=== PATIENT | male | born 1935 | race Caucasian/White ===

== ENCOUNTER 2020-07-14 07:50 | Emergency (ER) | payer MEDICARE, OTHER ==
--- NOTE | 2020-07-14 08:38 | EDM.PDOC ---
ED HPI GENERAL MEDICAL PROBLEM - General Chief Complaint: Lower Extremity Injury/Pain Stated Complaint: FELL ON RIGHT HIP, EARS ARE PLUGGED Time Seen by Provider: 07/14/20 08:27 Source of Information: Reports: Patient, Family, RN Notes Reviewed History Limitations: Reports: No Limitations - History of Present Illness INITIAL COMMENTS - FREE TEXT/NARRATIVE: 85-year-old gentleman presents emergency department day complaint of right hip pain, he fell yesterday landing on his right hip he was able to tolerate it okay but now the pain has gotten significantly worse to the point he cannot bear weight. He is also injured his right elbow he states he is not having any pain from that area and he has a red swollen right ear that has been going on for couple of days. - Related Data Allergies Allergy/AdvReac Type Severity Reaction Status Date / Time No Known Allergies Allergy Verified 07/14/20 08:13 Home Meds: Home Meds Aspirin 1 tab PO DAILY 07/14/20 [History] Brimonidine Tartrate/Timolol [Combigan 0.2%-0.5% Eye Drops] 1 drop EYELF BID 07/14/20 [History] Latanoprost/Pf [Latanoprost 0.005% Eye Drop] 1 drop EYEBOTH DAILY 07/14/20 [History] Simvastatin 1 tab PO DAILY 07/14/20 [History] atenoloL [Atenolol] 1 tab PO DAILY 07/14/20 [History] lisinopriL [Lisinopril] 1 tab PO DAILY 07/14/20 [History] Past Medical History Cardiovascular History: Reports: High Cholesterol, Hypertension - Past Surgical History Cardiovascular Surgical History: Reports: Coronary Artery Bypass GI Surgical History: Reports: Appendectomy Social & Family History - Tobacco Use Tobacco Use Status *Q: Never Tobacco User Review of Systems - Review of Systems Review Of Systems: See Below Ears: Reports: Other (Edema). Denies: Clear Discharge, Purulent Discharge, Serosanguinous Discharge Musculoskeletal: Reports: Joint Pain (Hip pain) Skin: Reports: Rash, Change in Color ED EXAM, GENERAL - Physical Exam Exam: See Below Free Text/Narrative:: Examination of the right hip he is point tender over the greater trochanter does not tolerate flexion or extension well cannot do internal and external rotation Exam Limited By: No Limitations General Appearance: Alert, WD/WN, No Apparent Distress Ear Exam: Right Ear: Swelling, Bilateral Ear: Canal Normal, TM normal Course - Vital Signs Last Recorded V/S: Last Vital Signs Temp 96.6 F L 07/14/20 08:25 Pulse 64 07/14/20 08:25 Resp 14 07/14/20 08:25 BP 124/61 07/14/20 08:25 Pulse Ox 97 07/14/20 08:25 - Orders/Labs/Meds Orders: Active Orders 24 hr Category Date Time Status Consult to Physical Therapy [PT Evaluation and Cons 07/14/20 11:00 Active Treatment] [CONS] Routine Meds: Medications Discontinued Medications Generic Name Dose Route Start Last Admin Trade Name Rosalinda PRN Reason Stop Dose Admin Ketorolac Tromethamine 30 mg 07/14/20 08:39 07/14/20 08:44 Ketorolac 30 Mg/Ml Sdv IM 07/14/20 08:40 30 mg ONETIME ONE Administration - Re-Assessments/Exams Free Text/Narrative Re-Assessment/Exam: 07/14/20 11:39 I did have him trial standing he was able to put his foot down consistent with partial weightbearing however any transfer weight cause significant pain he could not take a step. 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 Therefore will we had the opportunity have physical therapy come and evaluate him here get him set up with probably a walker and I will provide pain control he will follow-up then with his primary care on Friday Departure - Departure Time of Disposition: 12:33 Disposition: Home, Self-Care 01 Condition: Fair Clinical Impression: Acetabulum fracture, right Qualifiers: Encounter type: initial encounter Sublocation of acetabulum: unspecified portion of acetabulum Fracture type: closed Fracture alignment: nondisplaced Qualified Code(s): S32.401A - Unspecified fracture of right acetabulum, initial encounter for closed fracture - Discharge Information Instructions: Simple Pelvic Fracture, Adult Referrals: PCP,None [Primary Care Provider] - Forms: ED Department Discharge Additional Instructions: Use ibuprofen for baseline pain control use the hydrocodone for breakthrough pain, take full course of antibiotics, please follow-up with your primary care on Friday for further evaluation and treatment continue to use a walker and be nonweightbearing as much as possible Sepsis Event Note (ED) - Evaluation Sepsis Screening Result: No Definite Risk - Focused Exam Vital Signs: Vital Signs Temp Pulse Resp BP Pulse Ox 07/14/20 08:25 96.6 F L 64 14 124/61 97 - My Orders Last 24 Hours: My Active Orders 07/14/20 11:00 Consult to Physical Therapy [PT Evaluation and Treatment] [CONS] Routine - Assessment/Plan Last 24 Hours: My Active Orders 07/14/20 11:00 Consult to Physical Therapy [PT Evaluation and Treatment] [CONS] Routine Plan: Assessment Acuity = acute Site and laterality = right acetabulum fracture Etiology = secondary to fall Manifestations = none Location of injury = Home Lab values = x-ray was negative CT scan describes a stable nondisplaced right acetabulum fracture Plan I did talk to them about hospital admission which they declined they would like to try this at home therefore had physical therapy come and set him up with a walker to do nonweightbearing as much as possible he is going to follow-up with his primary care upon return home for further evaluation and treatment pr escription written for hydrocodone 5/325 1 tab p.o. 3 times daily as needed total #10 and Keflex 500 mg p.o. 4 times daily x7 days This note was dictated using [employer] voice recognition software please call with any questions on syntax or grammar.
[2020-07-14] MEDS ORDERED: Ketorolac 30 MG/ML SDV IM ONE (08:39)
--- NOTE | 2020-07-14 09:33 | CRLCR ---
INDICATION: Fall. Pain. FINDINGS: A single frontal view of the pelvis along with 2 views of the right hip show no evidence of acute fracture or dislocation. Joint space narrowing of the left hip. Normal appearance of the right hip joint. No other bony or soft tissue abnormalities identified. Dictated by Simón Glass MD @ 07/14/2020 9:30:52 AM Dictated by: Simón Glass MD @ 07/14/2020 09:31:05 (Electronically Signed)
--- NOTE | 2020-07-14 10:33 | CRLCT ---
HISTORY: Right hip pain. TECHNIQUE: Noncontrast CT of the pelvis and right hip. COMPARISON: Radiographs 07/14/2020. FINDINGS: There is a subtle nondisplaced fracture of the right anterior acetabulum which is noted on axial image #81 of series 7 and coronal image #51 and 52 of series 5. Subtle anterior cortical disruption is noted on those images. There is no disruption of the acetabular articular surface. No right proximal femoral fracture. There are mild degenerative changes of the right hip. The right superior and inferior pubic rami are intact. - Degenerative changes of the sacroiliac joints within the lumbar spine. Degenerative changes of the left hip. No localized fluid collection or space-occupying hematoma. - Prostate is enlarged. There is colonic diverticulosis. Small fat containing inguinal hernias are noted. IMPRESSION: 1. On the right, there is a subtle nondisplaced fracture involving the anterior cortex of the anterior acetabulum. No disruption of the articular surface. 2. No right proximal femoral fracture. 3. Degenerative changes. Dictated by Mark Das MD @ 07/14/2020 10:32:32 AM Please note that all CT scans at this facility use dose modulation, iterative reconstruction, and/or weight-based dosing when appropriate to reduce radiation dose to as low as reasonably achievable. Dictated by: Mark Das MD @ 07/14/2020 10:32:38 (Electronically Signed)
== END 2020-07-14 13:37 | disposition home or self-care (01) ==
LOC: JP.ED 07:50
DX: S32.401A Unspecified fracture of right acetabulum, initial encounter for closed fracture (principal); E78.00 Pure hypercholesterolemia, unspecified; I10 Essential (primary) hypertension; Z79.82 Long term (current) use of aspirin; Z79.899 Other long term (current) drug therapy; W18.39XA Other fall on same level, initial encounter
CPT/HCPCS: 73502; 73700; 96372; 99283; 99284; J1885